=== PATIENT | female | born 1965 | race Caucasian/White ===

== ENCOUNTER 2024-02-14 19:59 | Emergency (ER) | payer SELFPAY ==
[2024-02-14] MEDS ORDERED: DIPHENHYDRAMINE 50 MG/ML VIAL ONE (20:24)
[2024-02-14 20:45] LABS: Absolute Basophils 0.1 K/uL (0-0.5); Absolute Eosinophils 0.4 K/uL (0-0.5); Absolute Lymphocytes (CBC) 2.8 K/uL (0.7-4.9); Absolute Monocytes 0.4 K/uL (0.1-1.3); Absolute Neutrophil 3.5 K/uL (1.8-8.0); Basophils % 0.9 % (0-1.3); Hematocrit 38.6 % (36.0-45.0); Lymphocytes % 38.9 % (15.3-44.8); MCH 29.4 pg (27.0-35.0); MCHC 33.6 g/dL (32.0-36.0); MCV 87.5 fL (80-100); MPV 7.8 fL (7.6-11.3); Monocytes % 5.9 % (3.3-12.3); Neutrophils % 48.3 % (41.7-73.7); Nucleated Red Blood Cells % 0.2 % (0-0); Platelets 290 thou/uL (152-406); RBC Red Blood Cell Count 4.41 M/uL (3.86-4.86); Red Cell Distribution Width 12.6 % (12.1-15.2)
--- NOTE | 2024-02-14 20:50 | RAD REPORT ---
EXAM DESCRIPTION: [facility] Single View02/14/2024 8:34 pm CLINICAL HISTORY: Chest pain COMPARISON: none FINDINGS: The lungs appear clear of acute infiltrate. The heart is normal size IMPRESSION: No acute abnormalities displayed
[2024-02-14 20:57] LABS: Anion Gap 8.6 mEq/L (5.0-15.0); BUN Blood Urea Nitrogen 13 mg/dL (7-18); Bicarbonate 26 mEq/L (21-32); Glomerular Filtration Rate 73 ml/min (=/>90); Glucose Level 104 mg/dL (74-106); Potassium 3.6 mEq/L (3.5-5.1); Sodium Level 140 mEq/L (136-145)
[2024-02-14 20:58] LABS: ALT/SGPT 16 U/L (13-56); AST/SGOT 10 U/L (15-37); Albumin 3.9 g/dL (3.4-5.0); Albumin/Globulin Ratio 1.3 (1.1-1.8); Alkaline Phosphatase 83 U/L (45-117); Bilirubin Total 0.2 mg/dL (0.2-1.0); Globulin 3.1 g/dL (2.3-3.5)
[2024-02-14 21:03] LABS: Bilirubin Direct < 0.1 mg/dL (0-0.2); Bilirubin Indirect, Calculated ND mg/dL (0.2-0.8); Troponin High Sensitivity < 3.0 pg/mL (<58.9)
--- NOTE | 2024-02-14 21:20 | ER ---
Nurse's Notes [facility] Name: Laurita Juarez Age: 58 yrs Sex: Female : 1965 Arrival Date: 02/14/2024 Time: 19:59 Bed 7 Private MD: Diagnosis: Anxiety disorder, unspecified Presentation: 02/13 20:10 Chief complaint: Patient states: I have chest tightness that comes and goes for about km8 20 mins when it happens. this has been happening for about 1.5 weeks. Coronavirus screen: At this time, the client does not indicate any symptoms associated with coronavirus-19. Ebola Screen: Patient negative for fever greater than or equal to 101.5 degrees Fahrenheit, and additional compatible Ebola Virus Disease symptoms Patient denies exposure to infectious person. Patient denies travel to an Ebola-affected area in the 21 days before illness onset. No symptoms or risks identified at this time. Initial Sepsis Screen: Does the patient meet any 2 criteria? No. Patient's initial sepsis screen is negative. Does the patient have a suspected source of infection? No. Patient's initial sepsis screen is negative. Risk Assessment: Do you want to hurt yourself or someone else? Patient reports no desire to harm self or others. Onset of symptoms was January 29, 2024. 20:10 Method Of Arrival: Ambulatory km8 20:10 Acuity: ANA LAURA 2 km8 Triage Assessment: 20:15 General: Appears distressed, uncomfortable, Behavior is calm, cooperative, appropriate km8 for age, crying. Pain: Denies pain. EENT: No deficits noted. No signs and/or symptoms were reported regarding the EENT system. Neuro: No deficits noted. Level of Consciousness is awake, alert, obeys commands, Oriented to person, place, time, situation, Appropriate for age. Cardiovascular: Reports chest pain, but not currently experiencing the pain. when it comes it feels like a tightness in center of chest Heart tones S1 S2 present Capillary refill < 3 seconds Patient's skin is warm and dry. Respiratory: No deficits noted. Airway is patent Respiratory effort is even, unlabored, Respiratory pattern is regular, symmetrical, Breath sounds are clear bilaterally. Historical: - Allergies: 20:15 Diflucan PO; km8 20:15 Gluten Protein; km8 - Home Meds: 20:15 Synthroid 125 mcg Oral tablet 1 tab [Active]; trazodone 50 mg Oral tablet 1 tab every km8 day at bedtime [Active]; - PMHx: 21:33 Anxiety; Depressive disorder; ha1 - PSHx: 20:15 Unable to Obtain; km8 - Immunization history:: Adult Immunizations not up to date. - Infectious Disease History:: Denies. - Social history:: Smoking status: Patient reports the use of cigarette tobacco products, denies chronic smoking, but will smoke occasionally. Screenin:32 Abuse screen: Denies threats or abuse. Denies injuries from another. Nutritional ha1 screening: No deficits noted. Tuberculosis screening: No symptoms or risk factors identified. 21:32 [facility] ED Fall Risk Assessment (Adult) History of falling in the last 3 months, ha1 including since admission No falls in past 3 months (0 pts) Confusion or Disorientation No (0 pts) Intoxicated or Sedated No (0 pts) Impaired Gait No (0 pts) Mobility Assist Device Used No (0 pt) Altered Elimination No (0 pt) Score/Fall Risk Level 0 - 2 = Low Risk Oriented to surroundings, Maintained a safe environment, Educated pt \T\ family on fall prevention, incl call for assistance when getting out of bed, Hourly rounding (assess needs \T\ fall precautionary measures) done. Assessment: 20:06 General: Appears uncomfortable, Behavior is cooperative, anxious, crying. Pain: ha1 Complains of pain in chest Pain does not radiate. Pain currently is 6 out of 10 on a pain scale. Quality of pain is described as pressure, Pain began suddenly. Neuro: Level of Consciousness is awake, alert, obeys commands, Oriented to person, place, time, situation. Cardiovascular: Reports chest pain, palpitations, Heart tones S1 S2 present Capillary refill < 3 seconds Patient's skin is warm and dry. Rhythm is sinus rhythm. Respiratory: Airway is patent Respiratory effort is even, unlabored, Respiratory pattern is regular, symmetrical. GI: No signs and/or symptoms were reported involving the gastrointestinal system. : No signs and/or symptoms were reported regarding the genitourinary system. Musculoskeletal: Circulation, motion, and sensation intact. Range of motion: intact in all extremities. 21:10 Reassessment: Patient and/or family updated on plan of care and expected duration. Pain ha1 level reassessed. Patient is alert, oriented x 3, equal unlabored respirations, skin warm/dry/pink. Vital Signs: 20:10 BP 124 / 78; Pulse 78; Resp 17; Temp 98.2; Pulse Ox 100% on R/A; Weight 72.12 kg; km8 Height 5 ft. 8 in. ; Pain 0/10; 20:35 BP 114 / 63; Pulse 59; Resp 17 S; Pulse Ox 100% on R/A; ha1 21:15 BP 112 / 64; Pulse 70; Resp 18 S; Temp 98.8; Pulse Ox 99% on R/A; ha1 20:10 Body Mass Index 24.18 (72.12 kg, 172.72 cm) km8 20:10 Pain Scale: Adult km8 ED Course: 20:01 Patient arrived in ED. mr 20:03 Aric Monroy MD is Attending Physician. ec2 20:06 Patient has correct armband on for positive identification. Placed in gown. Bed in low ha1 position. Call light in reach. Side rails up X 1. 20:06 Client placed on continuous cardiac and pulse oximetry monitoring. NIBP monitoring ha1 applied. electronic engineering draftsperson on. 20:12 Triage completed. km8 20:15 Arm band placed on right wrist. Patient placed in an exam room, on a stretcher, on km8 clipper machine, on pulse oximetry. EKG completed in triage. Results shown to MD. 20:20 Inserted saline lock: 20 gauge in right antecubital area, using aseptic technique. ha1 Blood collected. 20:20 O2 via room air. ha1 20:22 Keyshawn Burciaga, RN is Primary Nurse. tm6 20:32 Basic Metabolic Panel Sent. ha1 20:32 CBC with Diff Sent. ha1 20:32 Troponin HS Sent. ha1 20:36 XRAY Chest (1 view) In Process Unspecified. EDMS 21:31 No provider procedures requiring assistance completed. IV discontinued, intact, ha1 bleeding controlled, No redness/swelling at site. Pressure dressing applied. 21:32 Provided Education on: medication administration and follow ups . ha1 Administered Medications: 20:31 Drug: diphenhydrAMINE IVP 25 mg IVP once Route: IVP; Site: right antecubital; ha1 Medication: 21:32 VIS not applicable for this client. ha1 Outcome: 21:19 Discharge ordered by . ec2 21:31 Discharged to home ambulatory, with family, ha1 :31 Condition: stable 21:31 Discharge instructions given to patient, family, Instructed on discharge instructions, follow up and referral plans. medication usage, Demonstrated understanding of instructions, follow-up care, medications, 21:33 Patient left the ED. ha1 Signatures: Dispatcher [employer] EDSD Tami Nunez, Reg Reg mr Dara Shankar RN RN ha1 Aric Monroy MD MD ec2 Aylin Dhillon RN RN km8 Keyshawn Burcigaa RN RN tm6 Corrections: (The following items were deleted from the chart) 21: 21:15 BP 112 / 64; Pulse 70bpm; Resp 18bpm; Spontaneous; Pulse Ox 99% RA; ha1 ha1 21:33 20:15 PMHx: None; km8 ha1
--- NOTE | 2024-02-14 21:20 | EDPHYS ---
Physician Documentation [facility] Name: Laurita Juarez Age: 58 yrs Sex: Female : 1965 Arrival Date: 02/14/2024 Time: 19:59 Bed 7 Private MD: ED Physician Aric Monroy HPI: 02/13 20:21 This 58 yrs old Female presents to ER via Ambulatory with complaints of Chest ec2 Pain. 20:21 Patient arrives today for evaluation of chest tightness which has been intermittent ec2 ongoing for several days. Patient reports history of anxiety and process may be contributing. States that she has a history of anxiety and depression as well as she is mostly medicated for this however has not been taking her medications recently. Patient reports no cough or cold symptoms, no difficulty breathing, no vomiting, no diarrhea, no other concerns. Patient expressed concern about anxiety, significant other in the room also agrees, patient has been ongoing some life stressors including job issues and personal issues that of caused her to be increasingly anxious at home.. Historical: - Allergies: 20:15 Diflucan PO; km8 20:15 Gluten Protein; km8 - Home Meds: 20:15 Synthroid 125 mcg Oral tablet 1 tab [Active]; trazodone 50 mg Oral tablet 1 tab every km8 day at bedtime [Active]; - PMHx: 21:33 Anxiety; Depressive disorder; ha1 - PSHx: 20:15 Unable to Obtain; km8 - Immunization history:: Adult Immunizations not up to date. - Infectious Disease History:: Denies. - Social history:: Smoking status: Patient reports the use of cigarette tobacco products, denies chronic smoking, but will smoke occasionally. ROS: 20:21 Constitutional: as per hpi ec2 Exam: 20:21 Constitutional: GEN: NAD Head: atraumatic Eyes: EOMI Ears: External ears are ec2 normal. CV: regular rate LUNGS: no respiratory distress ABD: non-distended SKIN: no evidence of rashes MSK: no evidence of trauma NEURO: moves all extremities equally. Psych: Anxious individual who is in otherwise no acute distress. Vital Signs: 20:10 BP 124 / 78; Pulse 78; Resp 17; Temp 98.2; Pulse Ox 100% on R/A; Weight 72.12 kg; km8 Height 5 ft. 8 in. ; Pain 0/10; 20:35 BP 114 / 63; Pulse 59; Resp 17 S; Pulse Ox 100% on R/A; ha1 21:15 BP 112 / 64; Pulse 70; Resp 18 S; Temp 98.8; Pulse Ox 99% on R/A; ha1 20:10 Body Mass Index 24.18 (72.12 kg, 172.72 cm) [facility] 20:10 Pain Scale: Adult [facility] MDM: 20:12 Data reviewed: vital signs. ED course: EKG independently reviewed and interpreted by ec2 me, shows normal sinus rhythm, rate of 57, no acute ST segment elevations, nonconcerning intervals. 20:13 Patient medically screened. ec2 20:22 ED course: Patient arrives today for evaluation of chest tightness as well as anxiety. ec2 Examination remarkable for well-appearing nontoxic dividual is otherwise in no acute distress she was noted to be anxious. Will obtain a cardiac evaluation, chest x-ray and give the patient Benadryl as well for anxiety. Considering ACS, doubt PE or dissection. Additionally considering anxiety.. 20:52 ED course: Chest x-ray shows no acute intrathoracic process.. ec2 21:09 ED course: Bolick profile reassuring, troponin is undetectable.. 2 02/13 20:13 Order name: Basic Metabolic Panel; Complete Time: 21:09 2 02/13 20:13 Order name: CBC with Diff; Complete Time: 20:52 2 02/13 20:13 Order name: Troponin HS; Complete Time: 21:09 2 02/13 20:20 Order name: LFT's; Complete Time: 21:09 2 02/13 20:13 Order name: XRAY Chest (1 view); Complete Time: 20:52 2 02/13 20:13 Order name: Cardiac monitoring; Complete Time: 20:31 2 02/13 20:13 Order name: EKG - Nurse/Tech; Complete Time: 20:18 2 02/13 20:13 Order name: IV Saline Lock; Complete Time: 20:31 2 02/13 20:13 Order name: Labs collected and sent; Complete Time: 20:31 [facility] 02/13 20:13 Order name: O2 Per Protocol; Complete Time: 20:31 2 04/19 20:13 Order name: O2 Sat Monitoring; Complete Time: 20:32 ec2 Administered Medications: 20:31 Drug: diphenhydrAMINE IVP 25 mg IVP once Route: IVP; Site: right antecubital; ha1 Disposition Summary: 02/14/24 21:19 Discharge Ordered Notes: Location: Home ec2 Problem: an acute exacerbation ec2 Symptoms: have improved ec2 Condition: Stable ec2 Diagnosis - Anxiety disorder, unspecified ec2 Followup: ec2 - With: Private Physician - When: - Reason: Re-evaluation by your physician Discharge Instructions: - Discharge Summary Sheet ec2 - Panic Attack ec2 Forms: - Medication Reconciliation Form ec2 - Thank You Letter ec2 - Antibiotic Education ec2 - Prescription Opioid Use ec2 - Patient Portal Instructions ec2 - Leadership Thank You Letter ec2 Prescriptions: - Hydroxyzine HCl 25 mg Oral Tablet - take 1 tablet ORAL route every 6 hours As needed; 30 tablet; Refills: 0, ec2 Product Selection Permitted Signatures: Dispatcher [employer] EDMS Dara Shankar RN RN 1 Aric Monroy MD MD 2 Aylin Dhillon RN RN km8 Corrections: (The following items were deleted from the chart) 20:14 20:14 BASIC METABOLIC PANEL+C.LAB.BRZ ordered. EDID EDMS 20:14 20:14 CBC+H.LAB.BRZ ordered. EDID EDMS 20:14 20:14 Troponin High Sensitivity+C.LAB.BRZ ordered. EDID EDMS 20:14 20:14 Chest Single View+RAD.RAD.BRZ ordered. [facility] EDID 20:22 20:21 Patient arrives today for evaluation of chest tightness which has been ec2 intermittent ongoing for several days. Patient reports history of anxiety and process may be contributing. States that she has a history of anxiety and depression as well as she is mostly medicated for this however has not been taking her medications recently. Patient reports no cough or cold symptoms, no difficulty breathing, no vomiting, no diarrhea, no other concerns.. ec2 20:22 20:21 Constitutional: GEN: NAD Head: atraumatic Eyes: EOMI Ears: External ears are ec2 normal. CV: regular rate LUNGS: no respiratory distress ABD: non-distended SKIN: no evidence of rashes MSK: no evidence of trauma NEURO: moves all extremities equally ec2 21:33 20:15 PMHx: None; km8 ha1
[2024-02-14 22:02] VITALS: BP 112/64; TEMP 98.8; O2SAT 99
== END 2024-02-14 21:33 | disposition home or self-care (01) ==
LOC: ER 19:59
DX: F41.9 Anxiety disorder, unspecified (principal)
CPT/HCPCS: 36415; 71045; 80048; 80076; 84484; 85025; 93005; 96374; 99285; J1200